=== PATIENT | male | born 1945 | race Caucasian/White ===

== ENCOUNTER → 2019-02-28 11:46 | Outpatient (CLI) | payer MEDICARE, OTHER, SELFPAY ==
--- NOTE | 2019-02-28 | DI.US.S_ITS ---
PROCEDURE: US CAROTID DOPPLER BI INDICATIONS: STENOSIS TECHNIQUE: Color and pulse Doppler interrogation was performed of both carotid systems, with image documentation and velocity measurements. COMPARISON: [facility], , CAROTID ARTERY DOPPLER BILAT, 09/23/2014, 10:55. FINDINGS: Stenosis calculations are based on SRU (Society of Radiologists in Ultrasound) criteria. Right side: Brachial blood pressure: 140/72 mm Hg. Common carotid artery peak systolic velocity: 49 cm/sec. Internal carotid artery peak systolic velocity: 55 cm/sec. Internal carotid artery end diastolic velocity: 20 cm/sec. External carotid artery peak systolic velocity: 64 cm/sec. ICA/CCA peak systolic ratio: 1.1. Sloan scale imaging description: Scattered plaque Percent internal carotid artery stenosis: Less than 50%. Vertebral artery: Flow direction is antegrade. Left side: Brachial blood pressure: 125/70 mm Hg. Common carotid artery peak systolic velocity: 67 cm/sec. Internal carotid artery peak systolic velocity: 61 cm/sec. Internal carotid artery end diastolic velocity: 19 cm/sec. External carotid artery peak systolic velocity: 77 cm/sec. ICA/CCA peak systolic ratio: 0.9. Sloan scale imaging description: Scattered plaque Percent internal carotid artery stenosis: Less than 50%. Vertebral artery: Flow direction is antegrade. IMPRESSION: Bilateral less than 50% ICA stenoses. Dictated by: Hector Booker M.D. on 02/28/2019 at 17:33 Approved by: Hector Booker M.D. on 02/28/2019 at 17:34
== END ==
PROVIDERS: Family Provider Family Medicine Geriatric Medicine; PCP Family Medicine Geriatric Medicine; Visit Provider Internal Medicine Cardiovascular Disease
DX: I65.23 Occlusion and stenosis of bilateral carotid arteries (principal)
CPT/HCPCS: 93880

== ENCOUNTER → 2020-02-07 09:32 | Outpatient (CLI) | payer MEDICARE, OTHER, SELFPAY ==
--- NOTE | 2020-02-08 03:37 | DI.NM.S_ITS ---
DATE OF SERVICE: 02/07/2020 PROCEDURE: Pharmacological perfusion study. INDICATIONS: History of coronary artery bypass surgery in September,, grafts more than 5 years old, aortic valve replacement, hypertension and hyperlipidemia. RADIOPHARMACEUTICAL: 25.2 millicurie technetium-99m Myoview IV was injected at stress and 11.7 millicurie technetium-99m Myoview IV was injected at rest. CARDIAC STRESS: The patient initially attempted exercise perfusion study. It was done under the supervision of an attending staff. The patient could not tolerate inclination and speed at third of stage of Fredy protocol. Hence, inclination and speed was reduced, but he could not walk more than 2 minutes and his peak heart rate was 106 beats per minute. Target heart rate about 126, hence exercise stress test was discontinued. It was converted to Lexiscan perfusion study. The patient received IV Lexiscan, as per protocol. No chest pain. He felt mild dyspnea and flushing during Lexiscan injection. Prior to exercise, baseline rhythm sinus with some repolarization changes. During exercise, he has some PVCs. At the beginning of Lexiscan, he has at least [address] depression in leads V3 to V6, which got more pronounced after Lexiscan injection. The patient developed 2-2.5 mm horizontal, as well as downsloping ST depression in V4 to V6 and 1 mm horizontal in inferior leads. Has intermittent PVCs but no sustained ventricular tachycardia. Overall, achieved 7.7 METS of workload. RAW DATA: There is increased subdiaphragmatic activity. GATED STUDY: Resting LV ejection fraction 68 and stress LV ejection fraction 74 percent. However, there appears to be basal inferior wall hypokinesis. Resting end-diastolic volume 115 mL which appears within normal limits. TID ratio is 0.88, which is within normal limits. Lung/heart ratio 0.27, which is within normal limits. MYOCARDIAL PERFUSION: Stress supine, resting supine and stress prone images were compared to each other. There appears to be predominantly fixed, small size, moderate to severely decreased perfusion of basal inferior wall with very small med-infarct ischemia. During the resting supine and stress prone images, there is some inferior apical defect, which is not very prominent during stress supine. CONCLUSION: This is an abnormal myocardial perfusion study, consisting of small size, moderately severe infarction of basal inferior wall with very small med- infarct ischemia. No significant ischemic burden. The patient could not walk on third stage of Fredy protocol. The stress EKG appears to be abnormal, as stated above. Intermittent premature ventricular contractions without any sustained ventricular tachycardia. Overall left ventricular function is preserved. Viktor Montes - Olga/marian doc#: [id number]/job#: [id number] dd: 02/07/2020 17:28:00 dt: 02/08/2020 03:23:00 DICTATING MD/COPIES TO: Camila Murillo MD COPIES MNE: SAUL;
== END ==
PROVIDERS: Family Provider Family Medicine Geriatric Medicine; PCP Family Medicine; Referring Provider Family Medicine; Visit Provider Internal Medicine Cardiovascular Disease
DX: R94.39 Abnormal result of other cardiovascular function study (principal); I25.810 Atherosclerosis of coronary artery bypass graft(s) without angina pectoris; I10 Essential (primary) hypertension; E78.5 Hyperlipidemia, unspecified; Z95.1 Presence of aortocoronary bypass graft; Z95.2 Presence of prosthetic heart valve
CPT/HCPCS: 78452; 93017; A9502; J2785

== ENCOUNTER → 2021-09-02 09:04 | Outpatient (CLI) | payer MEDICARE, OTHER, SELFPAY ==
[2021-09-02 10:05] LABS: Add Manual Diff / Slide Review NO; Basophils Absolute Auto 0 /uL (0-100); Eosinophils Absolute Auto 200 /uL (0-450); Eosinophils Percent Auto 3.8 % (2-4); Hematocrit 38.8 % (41-53); Hemoglobin 13.4 g/dL (13.5-17.5); Lymphocytes Absolute Auto 1400 /uL (1100-4500); Lymphocytes Percent Auto 30.4 % (25-40); Mean Corpuscular HGB Conc 34.5 % (30-36); Mean Corpuscular Volume 84.1 fL (80-100); Monocytes Absolute Auto 500 /uL (0-900); Monocytes Percent Auto 10.7 % (3-14); Neutrophils Absolute Auto 2500 /uL (1500-7000); Neutrophils Percent Auto 54.1 % (50-75); Platelet Count 206 X10^3/uL (150-400); Red Blood Cell Count 4.61 X10^6/uL (4.5-5.9); Red Cell Distribution Width 14.1 % (11.6-14.8); White Blood Cell Count 4.6 X10^3/uL (4.5-11.0)
[2021-09-02 10:34] LABS: BUN Creatinine Ratio 23.7 (6-22); Blood Urea Nitrogen 22 mg/dL (9-20); Calcium 9.3 mg/dL (8.4-10.2); Carbon Dioxide 28 mmol/L (22-32); Chloride 107 mmol/L (98-107); Cholesterol 175 mg/dL (140-199); Estimated Glomerular Filt Rate > 60.0 mL/min (>60); Glucose 95 mg/dL (80-110); HDL Cholesterol 50 mg/dL (40-60); HEMOLYSIS < 15 (0-50); LDL Cholesterol Calculated 100 mg/dL (<100); Potassium 3.7 mmol/L (3.4-5.1); Sodium 142 mmol/L (137-145); Triglycerides 127 mg/dL (35-150)
== END ==
PROVIDERS: Family Provider Family Medicine Geriatric Medicine; PCP Family Medicine; Referring Provider Internal Medicine Cardiovascular Disease; Visit Provider Internal Medicine Cardiovascular Disease
DX: I25.810 Atherosclerosis of coronary artery bypass graft(s) without angina pectoris (principal); E78.2 Mixed hyperlipidemia; I10 Essential (primary) hypertension
CPT/HCPCS: 36415; 80048; 80061; 85025

== ENCOUNTER → 2022-11-01 11:10 | Outpatient (CLI) | payer MEDICARE, OTHER, SELFPAY ==
--- NOTE | 2022-11-01 11:12 | DI.ECHO.S_ITS ---
[facility] +---------+ [facility] +---------+ : : [address] [place] : : : : [id number] : : : : Phone: [phone]---------+ Echocardiogram Report + + :Name: LEANNA MURRAY Study Date: 11/01/2022 Height: 70 in : :[facility] ReadingLocation: Weight: 185 lb : : Gender: Male BSA: 2.0 m2 : :: 1945 Age: 77 yrs BP: 152/75 mmHg: :Reason For Study: XENOGENIC HEART VALVE : :Ordering Physician: CANDIE, : :KARLO Performed By: Mandy Richard : :Referring: KARLO SCHREIBER : + + Interpretation Summary The left ventricle is normal in size and wall thickness. The ejection fraction is estimated to be 60-65%. Diastolic parameters suggest a pseudonormalization pattern, consistent with probable elevated filling pressures. The right ventricle is mildly dilated. The right ventricular systolic function is normal. There is a bioprosthetic aortic valve. The prosthetic aortic valve is well-seated. The peak aortic velocity is 2.6 m/sec. The aortic valve mean gradient is 16 mmHg. The peak aortic velocity on the previous exam was 2.39 m/sec. There is mild tricuspid regurgitation. Compared to the prior echo exam, there has been no change in TR severity. The right ventricular systolic pressure is estimated to be at least 34 mmHg based on an estimated right atrial pressure of 3 mm Hg. Moderate atherosclerotic plaque(s) in the aortic arch. Procedure: A two-dimensional transthoracic echocardiogram with color flow and Doppler was performed. The study quality was technically adequate. Comparison is made with the echocardiogram of 05/11/2015. The patient was in sinus bradycardia with heart rates between 46-50 bpm during the exam. The patient had frequent PVCs during the exam. Left Ventricle: The left ventricle is normal in size and wall thickness. There is no thrombus. The ejection fraction is estimated to be 60-65%. There is basal inferior wall hypokinesis. Compared to the prior exam, the left ventricular wall motion has not changed. Diastolic parameters suggest a pseudonormalization pattern, consistent with probable elevated filling pressures. Right Ventricle: The right ventricle is mildly dilated. The right ventricular systolic function is normal. Atria: The left atrium is moderately dilated. The left atrium has remained unchanged in size since the prior echo exam. The right atrium is mildly dilated. There is no Doppler evidence for an interatrial shunt. Mitral Valve: There is mild to moderate mitral annular calcification. The mitral valve leaflets are mildly calcified. There is mild mitral regurgitation. Aortic Valve: There is a bioprosthetic aortic valve. The prosthetic aortic valve is well-seated. The peak aortic velocity is 2.6 m/sec. The aortic valve mean gradient is 16 mmHg. The peak aortic velocity on the previous exam was 2.39 m/sec. No aortic regurgitation is present. Tricuspid Valve: The tricuspid valve is normal. There is mild tricuspid regurgitation. The right ventricular systolic pressure is estimated to be at least 34 mmHg based on an estimated right atrial pressure of 3 mm Hg. Compared to the prior echo exam, there has been no change in TR severity. Pulmonic Valve: The pulmonic valve leaflets are thin and pliable; valve motion is normal. There is trace pulmonic regurgitation. Great Vessels: The aortic root is normal size. The dimensions of the ascending aorta are normal. Moderate atherosclerotic plaque(s) in the aortic arch. The IVC is of normal diameter and collapses greater than 50% with a sniff. This suggests a low right atrial pressure of 3 mm Hg. Pericardium/ Pleura There is no pericardial effusion. There is an anterior echo-free space consistent with a fat pad. There is no pleural effusion. MMode/2D Measurements & Calculations LVIDd: 5.2 cm LVOT diam: 1.9 cm LVIDs: 3.3 cm asc Aorta Diam: 3.6 cm FS: 36.6 % Ao Arch Diam (Prox Trans): 2.8 cm IVSd: 0.88 cm LVPWd: 1.0 cm LV mayorga. diameter/BSA (cm/m^2): 2.6 LV sys. diameter/BSA (cm/m^2): 1.6 LA A2 area: 28.5 cm2 RA long axis: 5.7 cm LA A4 area: 23.5 cm2 RA area: 20.9 cm2 LA length (vol): 6.2 cm RA vol: 64.8 ml LA vol: 92.4 ml RA : 32.1 ml/m2 LA vol index: 45.8 ml/m2 IVC diam: 1.3 cm RVD1 (basal): 4.5 cm TAPSE: 1.7 cm Doppler Measurements & Calculations Ao V2 max: 261.8 cm/sec LVOT Max Beto: 89.5 cm/sec Ao V2 mean: 188.6 cm/sec LV V1 max P.2 mmHg Ao max P.4 mmHg LV V1 VTI: 22.5 cm Ao mean P.7 mmHg GERSON(I,D): 0.87 cm2 Ao V2 VTI: 69.8 cm GERSON(V,D): 0.92 cm2 sev ratio: 0.32 GERSON indexed to BSA (cm^2/m^2): 0.43 MV E max beto: 102.5 cm/sec TR max beto: 276.8 cm/sec MV A max beto: 76.5 cm/sec TR max P.7 mmHg MV E/A: 1.3 PA V2 max: 113.0 cm/sec Med Peak E' Beto: 4.8 cm/sec PA V2 mean: 82.5 cm/sec E/E' med: 21.4 PA mean P.0 mmHg Lat Peak E' Beto: 7.8 cm/sec PA pr(Accel): 20.8 mmHg E/E' lat: 13.1 E/e' average: 17.2 MV dec time: 0.21 sec SV(LVOT): 60.7 ml Reading Physician:09:16 AM
== END ==
PROVIDERS: Family Provider Family Medicine Geriatric Medicine; PCP Family Medicine; Referring Provider Internal Medicine Cardiovascular Disease; Visit Provider Internal Medicine Cardiovascular Disease
DX: I70.0 Atherosclerosis of aorta (principal); I08.1 Rheumatic disorders of both mitral and tricuspid valves; Z95.3 Presence of xenogenic heart valve
CPT/HCPCS: 93306

== ENCOUNTER → 2024-07-12 10:17 | Outpatient (CLI) | payer MEDICARE, OTHER, SELFPAY ==
[2024-07-12 11:20] LABS: Add Manual Diff / Slide Review NO; Basophils Absolute Auto 100 /uL (0-100); Basophils Percent Auto 1.1 % (0-2); Eosinophils Absolute Auto 100 /uL (0-450); Eosinophils Percent Auto 1.5 % (2-4); Hematocrit 41.7 % (41-53); Hemoglobin 14.3 g/dL (13.5-17.5); Lymphocytes Absolute Auto 1500 /uL (1100-4500); Mean Corpuscular HGB Conc 34.3 % (30-36); Mean Corpuscular Hemoglobin 29.7 PG (26-34); Mean Corpuscular Volume 86.8 fL (80-100); Monocytes Absolute Auto 700 /uL (0-900); Neutrophils Absolute Auto 4600 /uL (1500-7000); Neutrophils Percent Auto 65.4 % (50-75); Platelet Count 240 X10^3/uL (150-400); Red Cell Distribution Width 13.6 % (11.6-14.8)
[2024-07-12 11:43] LABS: BUN Creatinine Ratio 21.1 (6-22); Blood Urea Nitrogen 20 mg/dL (9-20); Calcium 10.2 mg/dL (8.4-10.2); Carbon Dioxide 29 mmol/L (22-32); Chloride 104 mmol/L (98-107); Cholesterol 158 mg/dL (140-199); Estimated Glomerular Filt Rate > 60 mL/min (>60); Glucose 115 mg/dL (80-110); HDL Cholesterol 49 mg/dL (40-60); HEMOLYSIS < 15 (0-50); LDL Cholesterol Calculated 88 mg/dL (<100); Potassium 4.7 mmol/L (3.4-5.1); Sodium 138 mmol/L (137-145); Triglycerides 106 mg/dL (35-150)
== END ==
PROVIDERS: Family Provider Family Medicine Geriatric Medicine; PCP Pediatrics; Referring Provider Nurse Practitioner; Visit Provider Nurse Practitioner
DX: I25.810 Atherosclerosis of coronary artery bypass graft(s) without angina pectoris (principal)
CPT/HCPCS: 36415; 80048; 80061; 85025

== ENCOUNTER → 2024-09-19 09:42 | Outpatient (CLI) | payer MEDICARE, OTHER, SELFPAY ==
--- NOTE | 2024-09-24 18:35 | DI.NM.S_ITS ---
DATE OF SERVICE: 09/19/2024 NUCLEAR CARDIOLOGY MYOCARDIAL PERFUSION STUDY PROCEDURE: Exercise treadmill myocardial perfusion study with gating to assess ejection fraction and regional wall motion. ORDERING PROVIDER: CHRISTIANO Rios. INDICATIONS: The patient is a 79-year-old male with a history of coronary artery bypass grafting and aortic valve replacement with an abnormal ECG. CARDIAC STRESS: The patient was able to exercise for 7 minutes on a standard Fredy protocol suggesting very good exercise capacity with an DWAIN of -21%, achieving 7.8 METS. He had a normal heart rate and blood pressure response to exercise, achieving a maximum heart rate of 136 bpm (95% of his predicted maximum). He had moderate dyspnea but no chest discomfort or other anginal symptoms. His resting ECG shows sinus rhythm with relatively normal ST segments. With stress, he develops 3 to 3.5 mm of flat to downsloping ST depression in the lateral leads, consistent with an ischemic response, persisting late into recovery. He had occasional PVCs, briefly in a bigeminal pattern in recovery, but no other significant ectopy. At 6 minutes of exercise at a heart rate of 121 bpm, 26.1 millicuries of technetium-99m Myoview was injected and he was imaged 15 minutes later using a gated SPECT acquisition protocol. Five days earlier while at rest, he had been injected with 25.9 millicuries of technetium-99m Myoview was imaged 15 minutes later, again using a gated SPECT acquisition protocol. FINDINGS: 1. Raw data. There is fairly good myocardial tracer uptake. The lung/heart ratio is normal at 0.30 with a normal TID ratio of 0.97. 2. Quantitated gated SPECT: Post-stress ejection fraction is 71% with hypokinesis at the base of the inferior wall but no other wall motion abnormalities. The resting ejection fraction is 70% with an identical contraction pattern. Resting end-diastolic volume is mildly increased at 120 mL. There is increased tracer uptake of the right ventricular free wall with possible right ventricular enlargement, suggesting a possible right ventricular overload condition but clinical correlation is needed. 3. Myocardial perfusion imaging: Post-stress supine images show a mumcijlz-hy-dwxzku perfusion defect at the base of the inferior wall, extending into the inferolateral wall and faintly into the mid inferior wall but sparing the distal segments. This defect persists on the prone images with slight improvement. The resting images show a similar perfusion pattern with minimal improvement at the periphery of the defect, but is essentially unchanged and no other areas of improvement. IMPRESSION: 1. Abnormal myocardial perfusion study but low risk. 2. Moderate-severe predominately fixed proximal inferior perfusion defect consistent with previous myocardial infarction with minimal med-infarct ischemia. 3. Mildly increased left ventricular volumes with preserved left ventricular systolic function but hypokinesis at the base of the inferior wall, consistent with previous infarction. The right ventricular free wall has increased tracer uptake and may be mildly enlarged, suggesting the possibility of a right ventricular overload condition but clinical correlation is needed. 4. Very good exercise capacity without angina but fairly marked ST-segment shifts, consistent with an ischemic response. He had occasional PVCs in recovery, briefly in a bigeminal pattern, but no complex ectopy. 5. Compared to the previous myocardial perfusion study of , there was an identical perfusion pattern without any change compared to today's study. The previous ejection fraction was 68% to 74% with basal inferior hypokinesis and an resting end-diastolic volume of 115 mL, suggesting the absence of any significant change. Viktor Montes - RS/raj/PREMIX OPERATOR [employer] doc#: [id number]/job#: [id number] dd: 09/24/2024 17:21:00 dt: 09/24/2024 17:39:00 DICTATING MD/COPIES TO: William Duran MD; Camila Murillo MD; Lisandra Jain NP COPIES MNE: JUANJOSE; ;
== END ==
LOC: NUCM 09:44
PROVIDERS: Family Provider Family Medicine Geriatric Medicine; Referring Provider Nurse Practitioner; Visit Provider Nurse Practitioner
DX: R94.39 Abnormal result of other cardiovascular function study; I25.810 Atherosclerosis of coronary artery bypass graft(s) without angina pectoris; Z95.1 Presence of aortocoronary bypass graft
CPT/HCPCS: 78452; 93017; A9502

== ENCOUNTER → 2024-09-20 13:41 | Outpatient (CLI) | payer MEDICARE, OTHER, SELFPAY ==
--- NOTE | 2024-09-20 13:43 | DI.US.S_ITS ---
PROCEDURE: US CAROTID DOPPLER BI INDICATIONS: BRUIT OF L CAROTID ART/S/P VALVE REPLACE/HX CABG TECHNIQUE: Color and pulse Doppler interrogation was performed of both carotid systems, with image documentation and velocity measurements. COMPARISON: [facility], , US CAROTID DOPPLER BI, 02/28/2019, 12:52. (Additional prior imaging is not available for review from the archive at the time of this dictation.) FINDINGS: Stenosis calculations are based on SRU (Society of Radiologists in Ultrasound) criteria. The flow velocities and the arterial waveforms are normal within both carotid arterial systems. Atherosclerotic plaque is seen on both sides, including shadowing plaque. The estimated degree of internal carotid artery stenosis is less than 50%. Antegrade flow is confirmed within both vertebral arteries. Arterial hypertension is measured at the time of this study, with the right brachial blood pressure bridging 182/86 and the left brachial blood pressure measuring 185/85. IMPRESSION: No hemodynamically significant stenosis is seen. Similar to the prior. Atherosclerotic plaque is noted bilaterally, including shadowing plaque. Arterial hypertension is measured at the time of this study. Note: Concordant preliminary findings given by the payroll and benefits coordinator upon the completion of the examination to nurse Griggs at Dr. Hand's office. Dictated by: Tushar Holland M.D. on 09/20/2024 at 15:06 Approved by: Tushar Holland M.D. on 09/20/2024 at 15:08
--- NOTE | 2024-09-20 13:43 | DI.ECHO.S_ITS ---
[facility] +---------+ Hospital : : [address] : : [place] : : [id number] : : Phone: [phone] Echocardiogram Report + + :Name: LEANNA MURRAY Study Date: 09/20/2024 Height: 69 in : :Hospital ReadingLocation: Weight: 185 lb : : Gender: Male BSA: 2.0 m2 : :: 1945 Age: 79 yrs BP: 176/91 mmHg: :Reason For Study: S/P AVR, CAROTID BRUIT : :Ordering Physician: FANNY, : :JOHNNY Jean Performed By: Niles Mckeon : :Referring: JOHNNY ESCOBEDO : + + Interpretation Summary The left ventricle is normal in size. The left ventricular ejection fraction is normal. The ejection fraction is estimated to be 60-65%. Diastolic parameters suggest a pseudonormalization pattern, consistent with probable elevated filling pressures. The right ventricle is normal size. Visually RV function appears to be preserved. There is a bioprosthetic aortic valve. The peak aortic velocity is 2.8 m/sec. The aortic valve mean gradient is 18.2 mmHg. The peak aortic velocity on the previous exam was 2.6 m/sec. There is no hemodynamically significant valvular aortic stenosis. Mild MR and mild TR. Right ventricular systolic pressure is estimated to be 33 mmHg plus the clinically estimated CVP which cannot be estimated on this exam. Mild atherosclerotic plaque(s) in the aortic arch. There is aortic root sclerosis/calcification. Procedure: A two-dimensional transthoracic echocardiogram with color flow and Doppler was performed. The study quality was technically good. Comparison is made with the echocardiogram of 11/01/2022. The patient was in sinus bradycardia with heart rates between 52-56 bpm during the exam. Left Ventricle: The left ventricle is normal in size. There is normal left ventricular wall thickness. There is no ventricular septal defect visualized. The left ventricular ejection fraction is normal. The ejection fraction is estimated to be 60-65%. There are no focal wall motion abnormalities. Diastolic parameters suggest a pseudonormalization pattern, consistent with probable elevated filling pressures. Right Ventricle: The right ventricle is normal size. Visually RV function appears to be preserved. Atria: The left atrium is severely dilated. There has been no significant change since the previous study. The right atrium is mildly dilated. The interatrial septum is not well visualized. Mitral Valve: There is mild to moderate mitral annular calcification. The mitral valve leaflets are mildly calcified. There is mild mitral regurgitation. Compared to the prior echo study, there has been no change in the severity of mitral regurgitation. Aortic Valve: There is a bioprosthetic aortic valve. The prosthetic aortic valve is well-seated. The prosthetic aortic valve is not well visualized. The peak aortic velocity is 2.8 m/sec. The aortic valve mean gradient is 18.2 mmHg. The peak aortic velocity on the previous exam was 2.6 m/sec. There is no hemodynamically significant valvular aortic stenosis. No aortic regurgitation is present. Tricuspid Valve: The tricuspid valve leaflets are thin and pliable. There is mild tricuspid regurgitation. Right ventricular systolic pressure is estimated to be 33 mmHg plus the clinically estimated CVP which cannot be estimated on this exam. Pulmonic Valve: The pulmonic valve leaflets are thin and pliable; valve motion is normal. Great Vessels: The aortic root is mildly dilated. There is aortic root sclerosis/calcification. The ascending aorta is at the upper limits of normal in size. Mild atherosclerotic plaque(s) in the aortic arch. The pulmonary artery is normal size. The inferior vena cava was not visualized. Pericardium/ Pleura There is no pericardial effusion. MMode/2D Measurements & Calculations LVIDd: 4.2 cm LVOT diam: 1.9 cm LVIDs: 2.8 cm Ao root diam: 3.7 cm FS: 32.7 % asc Aorta Diam: 3.7 cm EPSS: 0.43 cm IVSd: 0.97 cm LVPWd: 0.99 cm LV mayorga. diameter/BSA (cm/m^2): 2.1 LV sys. diameter/BSA (cm/m^2): 1.4 LA A2 area: 29.3 cm2 RA long axis: 4.9 cm LA A4 area: 27.3 cm2 RA area: 16.2 cm2 LA length (vol): 6.1 cm RA vol: 45.1 ml LA vol: 111.1 ml RA : 22.6 ml/m2 LA vol index: 55.6 ml/m2 RVD1 (basal): 4.5 cm RVD2 (mid): 3.7 cm TAPSE: 1.4 cm Doppler Measurements & Calculations Ao V2 max: 280.1 cm/sec LVOT Max Beto: 126.1 cm/sec Ao V2 mean: 202.5 cm/sec LV V1 max P.4 mmHg Ao max P.4 mmHg LV V1 VTI: 34.8 cm Ao mean P.2 mmHg GERSON(I,D): 1.3 cm2 Ao V2 VTI: 79.4 cm GERSON(V,D): 1.3 cm2 sev ratio: 0.44 GERSON indexed to BSA (cm^2/m^2): 0.63 MV E max beto: 106.9 cm/sec TR max beto: 285.5 cm/sec MV A max beto: 76.5 cm/sec TR max P.6 mmHg MV E/A: 1.4 PA V2 max: 51.3 cm/sec Med Peak E' Beto: 3.9 cm/sec PA V2 mean: 34.6 cm/sec E/E' med: 27.2 PA mean P.56 mmHg Lat Peak E' Beto: 8.6 cm/sec PA pr(Accel): 1.9 mmHg E/E' lat: 12.4 E/e' average: 19.8 MV dec time: 0.14 sec SV(LVOT): 99.3 ml Reading Physician:04:23 PM
== END ==
PROVIDERS: Family Provider Family Medicine Geriatric Medicine; Referring Provider Nurse Practitioner; Visit Provider Nurse Practitioner
DX: I65.23 Occlusion and stenosis of bilateral carotid arteries (principal); I08.1 Rheumatic disorders of both mitral and tricuspid valves; I10 Essential (primary) hypertension; R09.89 Other specified symptoms and signs involving the circulatory and respiratory systems; I77.810 Thoracic aortic ectasia; I70.0 Atherosclerosis of aorta; Z95.2 Presence of prosthetic heart valve
CPT/HCPCS: 93306; 93880